=== PATIENT | female | born 1960 | race Caucasian/White ===

== ENCOUNTER 2020-06-03 12:20 | Emergency (ER) | payer OTHER ==
[2020-06-03 15:52] LABS: HEMOGLOBIN 15.3 gm/dl (12.3-15.3); RED BLOOD COUNT 4.72 M/UL (4.00-5.10); WHITE BLOOD COUNT 9.9 K/UL (4.5-11.0)
[2020-06-03 16:16] LABS: BUN/CREATININE RATIO 36 (0-10)
== END 2020-06-03 18:17 | disposition home or self-care (01) ==
LOC: ER1 12:20
PROVIDERS: Physician Assistant
DX: R51.9 Headache, unspecified (principal); I10 Essential (primary) hypertension; J44.9 Chronic obstructive pulmonary disease, unspecified; F17.210 Nicotine dependence, cigarettes, uncomplicated; Z98.890 Other specified postprocedural states; Z87.19 Personal history of other diseases of the digestive system; Z86.79 Personal history of other diseases of the circulatory system
CPT/HCPCS: 70470; 80053; 85025; 96374; 99284; J1885; Q9963

== ENCOUNTER → 2021-03-08 | Outpatient (CLI) | payer OTHER | LOC: KOH-I 15:50 | DX: M79.641 Pain in right hand (principal); W10.8XXA Fall (on) (from) other stairs and steps, initial encounter; R07.82 Intercostal pain | CPT/HCPCS: 71046; 71100; 73110; 73130 ==